=== PATIENT | female | born 1970 | race Caucasian/White ===

== ENCOUNTER → 2021-02-01 | Outpatient (CLI) | payer BC ==
--- NOTE | 2021-02-01 11:49 | RAD ---
INDICATION: 51 years of age asymptomatic female patient presents for screening mammography. . TECHNIQUE: Full field craniocaudal and mediolateral oblique images of both breasts were obtained usi ng digital technique with tomosynthesis and also analyzed with computer-aided detection software. . COMPARISON: 01/12/2020 .. BREAST COMPOSITION: Category C: The breast tissue is heterogeneously dense, which could obscure detec tion of small masses. FINDINGS: Small circumscribed nodule in the lower outer right breast is unchanged from prior study. No new or s uspicious findings. No architectural distortion. IMPRESSION: Stable bilateral mammogram. RECOMMENDATION: Annual screening mammography is recommended, unless clinically indicated sooner based on symptoms or change in physical exam. BIRADS 2: BENIGN This study was interpreted with the benefit of Computerized Aided Detection (CAD). Recommend routine screening in one year. Patient information is entered into the reminder system with a target due date for the next screening mammogram. Mammography is the most sensitive method for finding small breast cancers, but it does not detect the m all and is not a substitute for careful clinical examination. A negative mammogram does not negate a clinically suspicious finding and should not result in delay in biopsying a clinically suspicious a bnormality. "Our facility is accredited by the [employer] Mammography Program." Electronically signed by: Bertin Lucero MD (02/01/2021 11:47 AM) [facility]
== END ==
LOC: MAMMO 10:20
PROVIDERS: ATTEND Obstetrics & Gynecology
DX: Z12.31 Encounter for screening mammogram for malignant neoplasm of breast (principal)
CPT/HCPCS: 77063; 77067